=== PATIENT | female | born 1960 | race African-American/Black ===

== ENCOUNTER 2023-10-10 05:41 | Emergency (ER) | payer OTHER ==
[2023-10-10] MEDS ORDERED: Ibuprofen 200 MG TAB ONE (06:27)
[2023-10-10] MEDS ORDERED: Acetaminophen 500 MG TAB ONE (06:31)
== END 2023-10-10 08:32 | disposition home or self-care (01) ==
LOC: BURERS 05:41
DX: S40.011A Contusion of right shoulder, initial encounter (principal); M79.89 Other specified soft tissue disorders; R03.0 Elevated blood-pressure reading, without diagnosis of hypertension; X58.XXXA Exposure to other specified factors, initial encounter